=== PATIENT | female | born 1975 | race Caucasian/White ===

== ENCOUNTER → 2018-04-18 | Outpatient (CLI) | payer BC | END | disposition home or self-care (01) | LOC: CFH 15:20 | PROVIDERS: ATTEND Physician Assistant | DX: M19.012 Primary osteoarthritis, left shoulder (principal); D64.9 Anemia, unspecified; E55.9 Vitamin D deficiency, unspecified; E78.5 Hyperlipidemia, unspecified; E87.6 Hypokalemia; F06.31 Mood disorder due to known physiological condition with depressive features; K21.9 Gastro-esophageal reflux disease without esophagitis; F41.9 Anxiety disorder, unspecified; L30.9 Dermatitis, unspecified; R63.5 Abnormal weight gain; R14.0 Abdominal distension (gaseous); R92.2 Inconclusive mammogram ==